=== PATIENT | male | born 1965 | race Caucasian/White ===

== ENCOUNTER 2018-01-24 13:52 | Emergency (ER) | payer BC ==
[~2018-01-24] VITALS: Ht 175.3 cm; Wt 88.0 kg
[~2018-01-24 13:52] MED LIST: DOCU-28 PO; NORCO10T PO
[2018-01-24] MEDS ORDERED: normal saline 1000ML IV soln IVB ONE (14:05)
[2018-01-24] MEDS ORDERED: morphine 4 MG/ML inj SYRINge IV PRN (14:05)
[2018-01-24] MEDS ORDERED: ondansetron/PF 4mg/2ml inj IV ONE (14:05)
[2018-01-24 14:44] LABS: ALANINE AMINOTRANSFERASE 22 U/L (12-78); ALBUMIN 3.4 G/DL (3.4-5.0); ALBUMIN/GLOBULIN RATIO 0.8 (1.1-1.5); ALKALINE PHOSPHATASE 80 IU/L (46-116); ANION GAP 9 (8-16); ASPARTATE AMINO TRANSFERASE 18 U/L (10-37); BASOPHILS % (AUTO) 0.3 % (0-1); BILIRUBIN,TOTAL 0.3 MG/DL (0.1-1.0); BLOOD UREA NITROGEN 13 MG/DL (7-18); BUN/CREATININE RATIO 13.1 (5.4-32.0); CALCIUM 8.9 MG/DL (8.5-10.1); CHLORIDE 104 MMOL/L (99-107); CREATININE 0.99 MG/DL (0.60-1.10); EOSINOPHILS # (AUTO) 0.2 X10'3 (0-0.9); EOSINOPHILS % (AUTO) 2.1 % (0-6); GLUCOSE 88 MG/DL (70-104); HEMATOCRIT 43.4 % (42.0-52.0); HEMOGLOBIN 14.7 g/dl (14.0-17.9); LIPASE 98 U/L (73-393); LYMPHOCYTES # (AUTO) 1.8 X10'3 (1.1-4.8); LYMPHOCYTES % (AUTO) 21.2 % (21-51); MEAN CORPUSCULAR HEMOGLOBIN 33.4 PG (27.0-31.0); MEAN CORPUSCULAR HGB CONC 33.8 % (33.0-36.5); MEAN CORPUSCULAR VOLUME 98.9 FL (78-98); MEAN PLATELET VOLUME 8.4 FL (7.4-10.4); MONOCYTES # (AUTO) 0.6 X10'3 (0-0.9); MONOCYTES % (AUTO) 6.9 % (2-12); NEUTROPHILS # (AUTO) 5.7 X10'3 (1.8-7.7); NEUTROPHILS % (AUTO) 69.5 % (42-75); PLATELET COUNT 252 X10'3 (140-440); POTASSIUM 3.6 MMOL/L (3.5-5.1); RED BLOOD COUNT 4.39 X10'6 (4.70-6.10); RED CELL DISTRIBUTION WIDTH 14.6 % (11.5-14.5); SODIUM 141 MMOL/L (135-145); TOTAL PROTEIN 7.5 G/DL (6.4-8.2); WHITE BLOOD COUNT 8.3 X10'3 (4.5-11.0); eGFR 80 ML/MIN
[2018-01-24] MEDS ORDERED: mag hydrox/Alum hydrox/simeth 30ml oral suspension PO ONE (15:30)
[2018-01-24] MEDS ORDERED: famotidine 20mg tablet PO ONE (15:30)
[2018-01-24 15:35] VITALS: BP 144/84
[2018-01-24] MEDS ORDERED: SUCR1TAB34 PO (15:51)
[2018-01-24] MEDS ORDERED: FAMO-128 PO (15:51)
== END 2018-01-24 16:09 | disposition home or self-care (01) ==
LOC: ER 13:53
DX: K29.00 Acute gastritis without bleeding (principal); R10.13 Epigastric pain; R10.11 Right upper quadrant pain; F12.90 Cannabis use, unspecified, uncomplicated; F17.200 Nicotine dependence, unspecified, uncomplicated; Z90.49 Acquired absence of other specified parts of digestive tract; Z98.890 Other specified postprocedural states; Z79.899 Other long term (current) drug therapy
CPT/HCPCS: 36415; 76700; 80053; 83690; 85025; 96361; 96374; 96375; 99285; J2270; J2405; J7030

== ENCOUNTER 2018-07-24 10:41 | Emergency (ER) | payer BC ==
[~2018-07-24] VITALS: Ht 177.8 cm; Wt 92.8 kg
[~2018-07-24 10:41] MED LIST changes: +FAMO-128 PO; +SUCR1TAB34 PO
[2018-07-24] MEDS ORDERED: aspirin 81mg tab.chew PO ONE (10:55)
[2018-07-24 11:08] LABS: BASOPHILS # (AUTO) 0.1 X10'3 (0-0.2); BASOPHILS % (AUTO) 1.1 % (0-1); EOSINOPHILS # (AUTO) 0.2 X10'3 (0-0.9); HEMATOCRIT 52.3 % (42.0-52.0); HEMOGLOBIN 17.1 g/dl (14.0-17.9); LYMPHOCYTES % (AUTO) 23.6 % (21-51); MEAN CORPUSCULAR HEMOGLOBIN 33.7 PG (27.0-31.0); MEAN CORPUSCULAR HGB CONC 32.6 % (33.0-36.5); MEAN CORPUSCULAR VOLUME 103.2 FL (78-98); MEAN PLATELET VOLUME 8.7 FL (7.4-10.4); MONOCYTES # (AUTO) 0.4 X10'3 (0-0.9); MONOCYTES % (AUTO) 4.8 % (2-12); NEUTROPHILS # (AUTO) 5.6 X10'3 (1.8-7.7); NEUTROPHILS % (AUTO) 68.5 % (42-75); PLATELET COUNT 243 X10'3 (140-440); RED BLOOD COUNT 5.07 X10'6 (4.70-6.10); RED CELL DISTRIBUTION WIDTH 13.4 % (11.5-14.5); WHITE BLOOD COUNT 8.3 X10'3 (4.5-11.0)
[2018-07-24 11:27] LABS: ALANINE AMINOTRANSFERASE 41 U/L (12-78); ALBUMIN 3.7 G/DL (3.4-5.0); ALBUMIN/GLOBULIN RATIO 0.8 (1.1-1.5); ALKALINE PHOSPHATASE 91 IU/L (46-116); ANION GAP 11 (8-16); ASPARTATE AMINO TRANSFERASE 41 U/L (10-37); BILIRUBIN,TOTAL 0.8 MG/DL (0.1-1.0); BLOOD UREA NITROGEN 15 MG/DL (7-18); BUN/CREATININE RATIO 15.3 (5.4-32.0); CALCIUM 9.1 MG/DL (8.5-10.1); CHLORIDE 100 MMOL/L (99-107); CREATININE 0.98 MG/DL (0.60-1.10); GLUCOSE 101 MG/DL (70-104); POTASSIUM 3.9 MMOL/L (3.5-5.1); SODIUM 138 MMOL/L (135-145); TOTAL CARBON DIOXIDE 27.5 MMOL/L (24-32); TOTAL PROTEIN 8.3 G/DL (6.4-8.2); eGFR 80 ML/MIN
[2018-07-24 11:28] LABS: PARTIAL THROMBOPLASTIN TIME 29 SECONDS (22-32); PROTHROMBIN TIME 10.5 SECONDS (9.0-12.0)
[2018-07-24] MEDS ORDERED: LORazepam 2 mg/ml vial IV ONE (12:00)
[2018-07-24 12:19] LABS: D-DIMER 0.55 MG/L FEU (0-0.50)
[2018-07-24] MEDS ORDERED: iohexol 350MG/ML 100ml bottle IV ONE (12:51)
[2018-07-24 13:44] VITALS: BP 161/110
[2018-07-24] MEDS ORDERED: PANT20TA3 PO (14:05)
[2018-07-24] MEDS ORDERED: pantoprazole 40 MG vial IV ONE (14:05)
[2018-07-24] MEDS ORDERED: LORA1TAB PO (14:05)
== END 2018-07-24 14:30 | disposition home or self-care (01) ==
LOC: ER 10:42
DX: I71.2 Thoracic aortic aneurysm, without rupture (principal); R91.1 Solitary pulmonary nodule; K44.9 Diaphragmatic hernia without obstruction or gangrene; E04.1 Nontoxic single thyroid nodule; F41.9 Anxiety disorder, unspecified; K29.70 Gastritis, unspecified, without bleeding; I10 Essential (primary) hypertension; F17.210 Nicotine dependence, cigarettes, uncomplicated; F12.10 Cannabis abuse, uncomplicated; Z90.49 Acquired absence of other specified parts of digestive tract; Z79.899 Other long term (current) drug therapy
CPT/HCPCS: 36415; 71045; 71275; 80053; 84484; 85025; 85379; 85610; 85730; 93005; 96374; 96375; 99284; C9113; J2060; Q9967

== ENCOUNTER 2020-02-13 14:00 | Emergency (ER) | payer BC ==
[~2020-02-13] VITALS: Ht 177.8 cm; Wt 89.1 kg
[~2020-02-13 14:00] MED LIST changes: +PANT20TA3 PO
[2020-02-13] MEDS ORDERED: ketorolac tromethamine 15mg/ml inj. IV ONE (14:55)
[2020-02-13] MEDS ORDERED: normal saline 1000ML IV soln IVB ONE (14:55)
[2020-02-13] MEDS ORDERED: ondansetron/PF 4mg/2ml inj IV ONE (14:55)
[2020-02-13] MEDS ORDERED: diphenhydrAMINE 50 mg/ml inj IV ONE (14:55)
[2020-02-13] MEDS ORDERED: metoclopramide 5 mg/ml inj IV ONE (15:00)
[2020-02-13] MEDS ORDERED: proCHLORperazine 10 MG/2 ml inj IV ONE (15:00)
[2020-02-13 15:07] LABS: BASOPHILS % (AUTO) 0.6 % (0-1); EOSINOPHILS # (AUTO) 0.1 X10'3 (0-0.9); EOSINOPHILS % (AUTO) 1.6 % (0-6); HEMOGLOBIN 14.5 g/dl (14.0-17.9); LYMPHOCYTES # (AUTO) 2.2 X10'3 (1.1-4.8); LYMPHOCYTES % (AUTO) 25.6 % (21-51); MEAN CORPUSCULAR HEMOGLOBIN 35.6 PG (27.0-31.0); MEAN CORPUSCULAR HGB CONC 33.8 g/dL (33.0-36.5); MEAN CORPUSCULAR VOLUME 105.4 FL (78-98); MEAN PLATELET VOLUME 7.9 FL (7.4-10.4); MONOCYTES # (AUTO) 0.5 X10'3 (0-0.9); NEUTROPHILS # (AUTO) 5.8 X10'3 (1.8-7.7); NEUTROPHILS % (AUTO) 66.2 % (42-75); PLATELET COUNT 239 X10'3 (140-440); RED BLOOD COUNT 4.08 X10'6 (4.70-6.10); RED CELL DISTRIBUTION WIDTH 14.1 % (11.5-14.5); WHITE BLOOD COUNT 8.7 X10'3 (4.5-11.0)
[2020-02-13 15:13] LABS: ALANINE AMINOTRANSFERASE 50 U/L (12-78); ALBUMIN 3.5 G/DL (3.4-5.0); ALBUMIN/GLOBULIN RATIO 0.8 (1.1-1.5); ALKALINE PHOSPHATASE 92 IU/L (46-116); ANION GAP 11 (8-16); ASPARTATE AMINO TRANSFERASE 103 U/L (10-37); BILIRUBIN,TOTAL 0.5 MG/DL (0.1-1.0); BLOOD UREA NITROGEN 23 MG/DL (7-18); BUN/CREATININE RATIO 16.9 (5.4-32.0); CALCIUM 8.9 MG/DL (8.5-10.1); CHLORIDE 108 MMOL/L (99-107); CREATININE 1.36 MG/DL (0.60-1.10); ETHANOL 0.151 GM/DL (0.0-0.010); GLUCOSE 84 MG/DL (70-104); POTASSIUM 3.6 MMOL/L (3.5-5.1); SODIUM 143 MMOL/L (135-145); TOTAL CARBON DIOXIDE 23.9 MMOL/L (24-32); TOTAL PROTEIN 8.1 G/DL (6.4-8.2); eGFR 55 ML/MIN
[2020-02-13 16:29] VITALS: BP 141/88
== END 2020-02-13 16:32 | disposition home or self-care (01) ==
LOC: ER 14:16
DX: T67.5XXA Heat exhaustion, unspecified, initial encounter (principal); E86.0 Dehydration; R51 Headache; R11.0 Nausea; I10 Essential (primary) hypertension; F17.200 Nicotine dependence, unspecified, uncomplicated; F12.90 Cannabis use, unspecified, uncomplicated; Z90.89 Acquired absence of other organs; Z98.890 Other specified postprocedural states; Z72.89 Other problems related to lifestyle; Z79.899 Other long term (current) drug therapy; X58.XXXA Exposure to other specified factors, initial encounter; Y93.89 Activity, other specified; Y92.89 Other specified places as the place of occurrence of the external cause; Y99.8 Other external cause status
CPT/HCPCS: 36415; 80053; 80320; 82948; 83735; 83880; 84484; 85025; 93005; 96361; 96374; 96375; 99284; J0780; J1200; J1885; J2765; J7030

== ENCOUNTER 2020-11-12 16:30 | Emergency (ER) | payer BC, OTHER ==
[~2020-11-12] VITALS: Ht 177.8 cm; Wt 81.8 kg
[~2020-11-12 16:30] MED LIST changes: +PANT20TA18 PO; -PANT20TA3 PO
[2020-11-12 16:35] VITALS: BP 150/99
[2020-11-12] MEDS ORDERED: ketorolac trometh inj. 60 MG/2 ML VIAL IM ONE (17:10)
[2020-11-12] MEDS ORDERED: acetaminophen 325mg tablet PO ONE (17:10)
[2020-11-12] MEDS ORDERED: predniSONE 20 mg tablet PO ONE (17:10)
[2020-11-12] MEDS ORDERED: HYDROcodone/acetaminophen 5mg/325mg tablet PO ONE (17:10)
[2020-11-12] MEDS ORDERED: triamcinolone acetonide 40mg/ml inj IM ONE (17:10)
[2020-11-12] MEDS ORDERED: ACET-812 PO (17:52)
[2020-11-12] MEDS ORDERED: IBUP-1984 PO (17:52)
[2020-11-12] MEDS ORDERED: PRED20TA PO (17:52)
[2020-11-12] MEDS ORDERED: FAMO40TA73 PO (17:52)
== END 2020-11-12 17:59 | disposition home or self-care (01) ==
LOC: ER 16:30
DX: G56.01 Carpal tunnel syndrome, right upper limb (principal); M25.531 Pain in right wrist; I10 Essential (primary) hypertension; F12.90 Cannabis use, unspecified, uncomplicated; Z72.89 Other problems related to lifestyle; Z90.49 Acquired absence of other specified parts of digestive tract; Z79.899 Other long term (current) drug therapy
CPT/HCPCS: 20526; 96372; 99284; J1885; J7512

== ENCOUNTER 2022-03-09 22:24 | Emergency (ER) | payer OTHER ==
[~2022-03-09] VITALS: Ht 175.3 cm; Wt 84.1 kg
[~2022-03-09 22:24] MED LIST changes: +FAMO40TA73 PO
[2022-03-09 23:43] LABS: BASOPHILS # (AUTO) 0.1 X10'3 (0-0.2); BASOPHILS % (AUTO) 0.8 % (0-1); EOSINOPHILS # (AUTO) 0.3 X10'3 (0-0.9); EOSINOPHILS % (AUTO) 2.4 % (0-6); HEMATOCRIT 41.9 % (42.0-52.0); HEMOGLOBIN 14.4 g/dl (14.0-17.9); LYMPHOCYTES # (AUTO) 2.3 X10'3 (1.1-4.8); LYMPHOCYTES % (AUTO) 21.2 % (21-51); MEAN CORPUSCULAR HEMOGLOBIN 34.2 PG (27.0-31.0); MEAN CORPUSCULAR HGB CONC 34.3 g/dL (33.0-36.5); MEAN CORPUSCULAR VOLUME 99.8 FL (78-98); MONOCYTES # (AUTO) 0.8 X10'3 (0-0.9); MONOCYTES % (AUTO) 6.9 % (2-12); NEUTROPHILS # (AUTO) 7.5 X10'3 (1.8-7.7); NEUTROPHILS % (AUTO) 68.7 % (42-75); PLATELET COUNT 243 X10'3 (140-440); RED CELL DISTRIBUTION WIDTH 13.3 % (11.5-14.5); WHITE BLOOD COUNT 10.9 X10'3 (4.5-11.0)
[2022-03-09 23:57] LABS: ALANINE AMINOTRANSFERASE 20 U/L (12-78); ALBUMIN 3.4 G/DL (3.4-5.0); ALBUMIN/GLOBULIN RATIO 0.8 (1.1-1.5); ALKALINE PHOSPHATASE 90 IU/L (46-116); ANION GAP 11 (8-16); ASPARTATE AMINO TRANSFERASE 22 U/L (10-37); BILIRUBIN,TOTAL 0.3 MG/DL (0.1-1.0); BLOOD UREA NITROGEN 19 MG/DL (7-18); BUN/CREATININE RATIO 20.7 (5.4-32.0); CHLORIDE 107 MMOL/L (99-107); CREATININE 0.92 MG/DL (0.60-1.10); GLUCOSE 85 MG/DL (70-104); POTASSIUM 3.3 MMOL/L (3.5-5.1); SODIUM 144 MMOL/L (135-145); TOTAL PROTEIN 7.7 G/DL (6.4-8.2); eGFR 85 ML/MIN
[2022-03-10 02:44] LABS: ETHANOL 0.023 GM/DL (0.0-0.010)
[2022-03-10] MEDS ORDERED: metoprolol tartrate 50mg tablet PO ONE (02:50)
[2022-03-10] MEDS ORDERED: LOP25T PO (02:51)
[2022-03-10 03:02] VITALS: BP 161/91
[2022-03-10 03:19] LABS: URINE AMPHETAMINE SCREEN POSITIVE (Neg); URINE BARBITUATE SCREEN NEGATIVE (Neg); URINE BENZODIAZEPINES SCREEN NEGATIVE (Neg); URINE CANNABINOID SCREEN POSITIVE (Neg); URINE COCAINE SCREEN NEGATIVE (Neg); URINE METHADONE SCREEN NEGATIVE (Neg); URINE OPIATE SCREEN NEGATIVE (Neg); URINE PHENCYCLIDINE SCREEN NEGATIVE (Neg)
== END 2022-03-10 03:04 | disposition home or self-care (01) ==
LOC: ER 22:26
DX: I10 Essential (primary) hypertension (principal); F12.90 Cannabis use, unspecified, uncomplicated; Z88.5 Allergy status to narcotic agent; Z98.890 Other specified postprocedural states
CPT/HCPCS: 36415; 71045; 80053; 80305; 80320; 83880; 84484; 85025; 93005; 99285

== ENCOUNTER → 2023-09-08 | Emergency (ER) | payer OTHER ==
[~2023-09-08] VITALS: Ht 172.7 cm; Wt 80.9 kg
[~2023-09-08] MED LIST changes: +LOP25T PO
[2023-09-08 12:59] VITALS: BP 190/101; PULSE 82; RESP 18; TEMP 97.8; O2SAT 98
== END | disposition left against medical advice (07) ==
LOC: ER 12:47
DX: M54.6 Pain in thoracic spine (principal); M54.2 Cervicalgia; I10 Essential (primary) hypertension; F12.90 Cannabis use, unspecified, uncomplicated; Z88.8 Allergy status to other drugs, medicaments and biological substances; Z91.018 Allergy to other foods; Z79.899 Other long term (current) drug therapy; Z98.890 Other specified postprocedural states; V89.2XXA Person injured in unspecified motor-vehicle accident, traffic, initial encounter; Y93.89 Activity, other specified; Y92.89 Other specified places as the place of occurrence of the external cause; Y99.8 Other external cause status
CPT/HCPCS: 72040; 72074; 72125; 72128; 99284

== ENCOUNTER 2023-09-09 12:31 | Emergency (ER) | payer OTHER | END 2023-09-09 14:30 | disposition left against medical advice (07) | LOC: ER 12:32 | DX: Z04.1 Encounter for examination and observation following transport accident (principal); Z53.21 Procedure and treatment not carried out due to patient leaving prior to being seen by health care provider; V89.2XXA Person injured in unspecified motor-vehicle accident, traffic, initial encounter; Y93.89 Activity, other specified; Y92.89 Other specified places as the place of occurrence of the external cause; Y99.8 Other external cause status ==